=== PATIENT | female | born 1985 | race Caucasian/White ===

== ENCOUNTER 2021-05-16 23:09 | Emergency (ER) | payer OTHER ==
[2021-05-17 01:04] LABS: Bilirubin Small (Negative); Blood, Urine Moderate (Negative); Clarity Slightly Cloudy (Clear); Glucose, Urine (Dipstick) Negative (Negative); Ketone, Urine Trace mg/dL (Negative); Leukocyte Large (Negative); Nitrite Negative (Negative); Protein, Urine (Dipstick) 100 mg/dL (Neg-Trace); Specific Gravity, Urine 1.025 (1.005-1.030)
[2021-05-17 01:12] LABS: Bacteria/HPF 3+ HPF (None Seen); Mucous/LPF 1+ LPF (<2+)
[2021-05-17] MEDS ORDERED: Ciprofloxacin 500 MG TAB ONE (01:22)
== END 2021-05-17 01:24 | disposition home or self-care (01) ==
LOC: BURERS 23:09
DX: O86.20 Urinary tract infection following delivery, unspecified (principal); Z20.822 Contact with and (suspected) exposure to COVID-19
CPT/HCPCS: 81003; 81015; 87804; 99283; U0003; U0005